=== PATIENT | female | born 1965 | race Native Hawaiian/Other Pacific Islander ===

== ENCOUNTER 2016-12-22 18:06 | Emergency (ER) | payer OTHER ==
[2016-12-22] MEDS ORDERED: ACETAMINOPHEN 325 MG TABLET PO STA (18:47)
[2016-12-22] MEDS ORDERED: IBUPROFEN 600 MG TABLET PO STA (18:47)
[2016-12-22] MEDS ORDERED: DEXAMETHASONE 10 MG/ML VIAL PO STA (18:47)
[2016-12-22] MEDS ORDERED: DEXAMETHASONE 10 MG/ML VIAL ONE (18:50)
[2016-12-22] MEDS ORDERED: IBUPROFEN 600 MG TABLET PO ONE (18:50)
[2016-12-22] MEDS ORDERED: ACETAMINOPHEN 325 MG TABLET PO ONE (18:50)
== END 2016-12-22 19:02 | disposition home or self-care (01) ==
DX: M79.675 Pain in left toe(s) (principal)
CPT/HCPCS: 99283; A9270

== ENCOUNTER 2018-01-12 18:32 | Emergency (ER) | payer OTHER ==
[2018-01-12 19:01] LABS: BASOPHILS % (AUTO) 0.5 %; EOSINOPHILS # (AUTO) 0.1 10^3/uL (0.0-0.7); EOSINOPHILS % (AUTO) 1.1 %; HGB - HEMOGLOBIN 13.7 g/dL (12.0-16.0); LYMPHOCYTES # (AUTO) 3.5 10^3/uL (1.5-3.5); LYMPHOCYTES % (AUTO) 48.7 %; MEAN CORPUSCULAR HGB CONC 30.7 g/dL (32.0-36.0); MEAN CORPUSCULAR VOLUME 65.2 fL (81.0-99.0); MEAN PLATELET VOLUME 8.5 fL (7.9-10.8); MONOCYTES # (AUTO) 0.5 10^3/uL (0.0-1.0); MONOCYTES % (AUTO) 7.6 %; NEUTROPHILS % (AUTO) 42.1 %; PLT - PLATELET COUNT 253 10^3/uL (130-450); RED BLOOD COUNT 6.81 10^6/uL (4.20-5.40); RED CELL DISTRIBUTION WIDTH 16.5 % (12.0-15.0); WHITE BLOOD COUNT 7.1 x10^3/uL (4.8-10.8)
--- NOTE | 2018-01-12 19:10 | ED Physician Documentation ---
PD HPI CHEST PAIN - Stated complaint Stated Complaint: CHEST PX - Chief complaint Chief Complaint: Cardiac - History obtained from History obtained from: Patient, Family - History of Present Illness Timing - onset: Other (She developed substernal chest pressure at 530 tonight while watching TV. It is nonradiating. It is better now but not gone. She also had a yesterday. She is getting over a cough and cold with clear sputum. No fevers. She has no history of heart problems. No pedal edema or shortness of breath. No calf pain. No history of DVT or PE.) Review of Systems Ten Systems: 10 systems reviewed and negative Constitutional: denies: Fever, Chills Cardiac: reports: Chest pain / pressure. denies: Palpitations, Pedal edema, Calf pain Respiratory: reports: Cough. denies: Dyspnea GI: denies: Abdominal Pain, Nausea, Vomiting PD PAST MEDICAL HISTORY - Past Medical History Past Medical History: Yes Cardiovascular: Hypertension Endocrine/Autoimmune: None - Past Surgical History Past Surgical History: No - Present Medications Home Medications: Ambulatory Orders Medication Instructions Recorded Confirmed Telmisartan [Micardis] 12/22/16 - Allergies Allergies/Adverse Reactions: Allergies Allergy/AdvReac Type Severity Reaction Status Date / Time No Known Drug Allergies Allergy Verified 01/12/18 18:40 - Social History Does the pt smoke?: No Smoking Status: Never smoker Does the pt drink ETOH?: Yes Does the pt have substance abuse?: No - Immunizations Immunizations are current?: Yes - POLST Patient has POLST: No PD ED PE NORMAL - Vitals Vital signs reviewed: Yes - General General: Alert and oriented X 3, No acute distress - HEENT HEENT: PERRL, EOMI - Neck Neck: Supple, no meningeal sign, No bony TTP - Cardiac Cardiac: RRR, No murmur - Respiratory Respiratory: No respiratory distress, Clear bilaterally - Abdomen Abdomen: Normal bowel sounds, Soft, Non tender - Back Back: No CVA TTP, No spinal TTP - Derm Derm: Normal color, Warm and dry, No rash - Extremities Extremities: No edema, No calf tenderness / cord - Neuro Neuro: Alert and oriented X 3, Normal speech Results - Vitals Vitals: Vital Signs - 24 hr 01/12/18 01/12/18 01/12/18 18:33 19:36 20:47 Temperature 36.9 C Heart Rate 75 62 60 Respiratory 18 18 18 Rate Blood Pressure 219/103 H 148/87 H 125/81 H O2 Saturation 98 98 97 Oxygen O2 Source Room air - EKG (time done) 1840 Rate: Rate (enter#) (67) Rhythm: NSR [place]: Normal Intervals: Normal PA QRS: Normal Ischemia: Non specific changes Computer interpretation: Agree with computer 1909 Rate: Rate (enter#) (64) Rhythm: NSR [place]: Normal Intervals: Normal PA QRS: Normal Ischemia: Non specific changes Compare to prior EKG: Unchanged from prior EKG (from #1) Computer interpretation: Agree with computer - Labs Labs: Laboratory Tests 01/12/18 01/12/18 01/12/18 18:53 18:53 18:53 WBC 7.1 RBC 6.81 H Hgb 13.7 Hct 44.4 MCV 65.2 L MCH 20.0 L MCHC 30.7 L RDW 16.5 H Plt Count 253 MPV 8.5 Neut # 3.0 Lymph # 3.5 Howard # 0.5 Eos # 0.1 Baso # 0.0 Absolute Nucleated RBC 0.00 Nucleated RBC % 0.0 Manual Slide Review Indicated WBC Morphology NORMAL APPEARANCE Platelet Estimate NORMAL (130-450,000) Platelet Morphology NORMAL APPEARANCE RBC Morph Micro Appear 1+ TARGET CELLS Sodium 136 Potassium 3.5 Chloride 97 L Carbon Dioxide 27 Anion Gap 12.0 BUN 16 Creatinine 0.6 Estimated GFR (MDRD) 105 Glucose 108 H Calcium 10.1 Total Bilirubin 0.6 AST 38 ALT 54 Alkaline Phosphatase 90 Troponin I < 0.04 Total Protein 8.8 H Albumin 4.8 Globulin 4.0 Albumin/Globulin Ratio 1.2 Lipase 29 01/12/18 20:34 WBC RBC Hgb Hct MCV MCH MCHC RDW Plt Count MPV Neut # Lymph # Howard # Eos # Baso # Absolute Nucleated RBC Nucleated RBC % Manual Slide Review WBC Morphology Platelet Estimate Platelet Morphology RBC Morph Micro Appear Sodium Potassium Chloride Carbon Dioxide Anion Gap BUN Creatinine Estimated GFR (MDRD) Glucose Calcium Total Bilirubin AST ALT Alkaline Phosphatase Troponin I < 0.04 Total Protein Albumin Globulin Albumin/Globulin Ratio Lipase - Rads (name of study) 1v chest Radiology: EMP read contemporaneously (normal) PD MEDICAL DECISION MAKING - ED course ED course: She has acute atypical CP. EKG nonischemic and unchanged x2. Delta trop at 2hr neg. CXR neg. BP noted but better w/o intervention. PERC neg, Departure - Departure Disposition: 01 Home, Self Care Clinical Impression: Chest pain Qualifiers: Chest pain type: unspecified Qualified Code(s): R07.9 - Chest pain, unspecified Condition: Good Record reviewed to determine appropriate education?: Yes Instructions: ED Chest Pain NonCardiac Comments: Call your doctor to arrange a follow-up appointment, make the next available appointment. In the interim, return anytime if worse or if new symptoms develop. Discharge Date/Time: 01/12/18 21:05
[2018-01-12 19:13] LABS: ALBUMIN 4.8 g/dL (3.2-5.5); ALBUMIN/GLOBULIN RATIO 1.2 (1.0-2.2); BILIRUBIN,TOTAL 0.6 mg/dL (0.2-1.0); CALCIUM 10.1 mg/dL (8.5-10.3); CREATININE 0.6 mg/dL (0.4-1.0); TOTAL PROTEIN 8.8 g/dL (6.7-8.2)
[2018-01-12 19:16] LABS: PLATELET ESTIMATE, MANUAL NORMAL (130-450,000) (NORMAL); PLATELET MORPHOLOGY NORMAL APPEARANCE (NORMAL)
--- NOTE | 2018-01-12 19:18 | XRAY Preliminary Report ---
Exam: XR CHEST 1 VIEW X-RAY IMPRESSION: Normal single view chest. [facility] SITE ID: [id number]
--- NOTE | 2018-01-12 19:18 | XRAY Report ---
EXAM: CHEST RADIOGRAPHY EXAM DATE: 01/12/2018 07:10 PM. CLINICAL HISTORY: Chest pain. COMPARISON: None. TECHNIQUE: 1 view. FINDINGS: Lungs/Pleura: Clear. No effusion or pneumothorax. Mediastinum: Within exam limitations, the cardiomediastinal contour is normal. Upper lobe vessels not distended. Other: None. IMPRESSION: Normal single view chest. [facility] Referring Provider Line: [phone] SITE ID: [id number]
[2018-01-12 20:47] VITALS: BP 125/81
== END 2018-01-12 21:05 | disposition home or self-care (01) ==
LOC: ED 18:32
DX: R07.9 Chest pain, unspecified (principal); R94.31 Abnormal electrocardiogram [ECG] [EKG]; I10 Essential (primary) hypertension
CPT/HCPCS: 36415; 71045; 80053; 83690; 84484; 85025; 93005; 99283; 99284

== ENCOUNTER 2019-10-02 14:31 | Outpatient (CLI) | payer OTHER ==
--- NOTE | 2019-10-03 09:03 | Ultrasound Report ---
Reason: RIGHT BREAST Procedure Date: 10/02/2019 Accession Number: [id number] / [id number] Procedure: US - Breast Unilateral Limited CPT Code: Final Report FULL RESULT: EXAM: Diagnostic Dig RT, Breast Unilateral Limited DATE: 10/02/2019 3:26 PM CLINICAL HISTORY: The patient is an asymptomatic 54-year-old female presenting for six-month follow-up right breast evaluation (mass - presumed fibroadenoma). No reported personal nor family history of breast cancer. TECHNIQUE: (B) - Bilateral CC and MLO views were obtained. Additional diagnostic images. COMPARISON: [facility] 03/19/2019 FINDINGS: PARENCHYMAL PATTERN: The breast tissue is heterogeneously dense which may limit mammographic sensitivity. The previously described lobulated mass with coarse / dystrophic calcifications in the posterior 8:00 position is stable in size and configuration since the most recent comparison study measuring 11 mm in maximal dimension. No new mass, area of distortion or pleomorphic obscuration. There is no mammographic evidence for malignancy. RIGHT ULTRASOUND FINDINGS: TECHNIQUE: A high frequency transducer was utilized to evaluate the lower outer quadrant (area of mammographic concern). Utility Mechanic Supervisor static images obtained. Doppler performed. There is an avascular lobulated mass in the 8:00 axis 7 cm from the nipple measuring 11 x 4 x 10 mm. This likely represents a fibroadenoma and is stable in size and configuration when compared to the prior study. There are no sonographic features of malignancy. Recommend ongoing imaging surveillance to confirm two-year stability. IMPRESSION: Probably Benign. BI-RADS category 3. RECOMMENDATION: (6MOS) - Recommend 6 month follow-up exam. Recommend repeat diagnostic mammogram and ultrasound in 6 months. Note: The left breast screening mammogram may be performed at same time. BI-RADS CATEGORY: (3) - Probably Benign. STANDARD QUALIFYING STATEMENTS: 1. This examination was not reviewed with the aid of Computer-Aided Detection (CAD). 2. A negative or benign imaging report should not preclude biopsy if clinically suspicious findings are present. 3. Dense breasts may obscure an underlying neoplasm.
== END 2019-10-02 14:32 | disposition home or self-care (01) ==
LOC: DI 14:31
PROVIDERS: ATTEND Family Medicine
DX: R92.8 Other abnormal and inconclusive findings on diagnostic imaging of breast (principal)
CPT/HCPCS: 76642

== ENCOUNTER 2020-05-23 14:53 | Outpatient (CLI) | payer OTHER ==
--- NOTE | 2020-05-26 09:18 | Ultrasound Report ---
LIMITED ULTRASOUND OF RIGHT BREAST AND AXILLA: 05/23/2020 CLINICAL: Patient returns for a 6 month follow up of the right breast. Comparison is made to exams dated: 05/23/2020 mammogram, 03/19/2019 ultrasound, 10/02/2019 mammogram, and 10/02/2019 ultrasound - [facility]. Color flow ultrasound of the right breast 8 o'clock, and axilla regions was performed. Sadler scale im ages of the real-time examination were reviewed. There is a 1.2 cm x 1.5 cm x 0.5 cm oval mass with an angular margin in the right breast at 8 o'clock posterior depth 7 cm from the nipple. This oval mass is hypoechoic. This abnormality is increased in size previously measuring 1.1 cm x 1.0 cm x 0.4cm in March 2019. THis correlates with mammography fi ndings. Color flow imaging demonstrates that there is no vascularity present. No significant abnormalities were seen sonographically in the right axilla. IMPRESSION: SUSPICIOUS OF MALIGNANCY The 1.2 cm x 1.5 cm x 0.5 cm oval mass in the right breast is probably a fibroadenoma; however it's s ignificant growth since March 2019 is at a low suspicion for malignancy. An ultrasound guided biopsy i s recommended. Findings and recommendations for biopsy were discussed with the patient by Dr. Jones during today's v isit. This exam was interpreted at Station ID: [id number]. Electronically Signed By: Frank Hoskins M.D. aty/:05/23/2020 18:26:49 Ultrasound BI-RADS: 4a Low suspicion for malignancy BI-RADS CATEGORY: (4a) - Low Susp None [id number] Immediate follow-up LATERALITY: ()
--- NOTE | 2020-05-26 09:18 | Mammography Report ---
BILATERAL DIGITAL DIAGNOSTIC MAMMOGRAM 3D/2D: 05/23/2020 CLINICAL: Patient returns for short term follow-up of a probably benign mass in the right breast. Comparison is made to exams dated: 10/02/2019 mammogram and 03/02/2019 mammogram - [facility]. The tissue of both breasts is heterogeneously dense. This may lower the sensitivity of m ammography. There are benign appearing calcifications in both breasts that are not significantly changed. There is a 1.3 cm x 1.5 cm irregular equal density mass with grouped coarse calcifications in the rig ht breast at 8 o'clock posterior depth. This is more prominent and increased in size and correlates with prior ultrasound findings. No other significant masses, calcifications, or other findings are seen in either breast. IMPRESSION: INCOMPLETE: NEEDS ADDITIONAL IMAGING EVALUATION The 1.3 cm x 1.5 cm irregular equal density mass in the right breast resembles a fibroadenoma and is indeterminate. An ultrasound is recommended for further evaluation and is scheduled to immediately follow this study . This exam was interpreted at Station ID: [id number]. NOTE: For mammograms, a report in lay terms will be sent to the patient. Approximately 15% of breast malignancies will not be visualized mammographically. In the management of a palpable breast mass, a negative mammogram must not discourage biopsy of a clinically suspicious lesion. Electronically Signed By: Frank Hoskins M.D. aty/:05/23/2020 16:25:21 ACR BI-RADS Category 0: Incomplete 3340F PARENCHYMAL PATTERN: (D) - The breast(s) demonstrate(s) heterogeneously dense fibroglandular evan kothari. BI-RADS CATEGORY: (0) - 0 Ultrasound [id number] Immediate follow-up LATERALITY: (R)
== END 2020-05-23 14:54 | disposition home or self-care (01) ==
LOC: DI 14:53
PROVIDERS: ATTEND Nurse Practitioner Family
DX: N63.13 Unspecified lump in the right breast, lower outer quadrant (principal); R92.8 Other abnormal and inconclusive findings on diagnostic imaging of breast
CPT/HCPCS: 76642; 77066

== ENCOUNTER 2020-10-07 14:12 | Emergency (ER) | payer OTHER ==
[2020-10-07 14:21] VITALS: BP 161/87
--- NOTE | 2020-10-07 14:29 | ED Physician Documentation ---
History of Present Illness - Stated complaint Stated Complaint: LT HAND INJ - Chief complaint Chief Complaint: Trauma Ext - History obtained from History obtained from: Patient - History of Present Illness Timing: Prior to arrival - Additonal information Additional information: 55-year-old female presents to the emergency department for evaluation of bruising to the dorsum of her left hand. She was pulling a rack out of a shelf at work and hit her hand on the locking mechanism of a door. Patient has a minor abrasion but fairly extensive swelling on the hand. She is right-hand dominant. No history of previous left hand injury. Review of Systems Constitutional: denies: Fever, Chills Eyes: reports: Reviewed and negative Ears: reports: Reviewed and negative Nose: reports: Reviewed and negative Throat: reports: Reviewed and negative Cardiac: reports: Reviewed and negative Respiratory: reports: Reviewed and negative GI: reports: Reviewed and negative Skin: reports: Abrasion (s) (dorsum of left hand) Musculoskeletal: reports: Extremity pain (left hand) Neurologic: reports: Reviewed and negative Psychiatric: reports: Reviewed and negative PD PAST MEDICAL HISTORY - Past Medical History Cardiovascular: Hypertension Endocrine/Autoimmune: None - Past Surgical History Past Surgical History: No - Present Medications Home Medications: Ambulatory Orders Medication Instructions Recorded Confirmed Telmisartan [Micardis] 12/22/16 - Allergies Allergies/Adverse Reactions: Allergies Allergy/AdvReac Type Severity Reaction Status Date / Time No Known Drug Allergies Allergy Verified 10/07/20 14:21 - Social History Does the pt smoke?: No Smoking Status: Never smoker Does the pt drink ETOH?: Yes Does the pt have substance abuse?: No - Immunizations Immunizations are current?: Yes - POLST Patient has POLST: No PD ED PE EXPANDED - Extremities Extremities: Left hand (minor abrsion dorsum of left hand. 3x4 cm area of ecchymosis. No deformity. Able to make a full fist with normal motor strength) Results - Vitals Vitals: Vital Signs - 24 hr 10/07/20 14:18 Temperature 36.0 C L Heart Rate 89 Respiratory 20 Rate Blood Pressure 161/87 H O2 Saturation 97 Oxygen O2 Source Room air - Rads (name of study) left hand Radiology: Final report received (Soft tissue swelling over the dorsum of the left hand but no underlying fracture or foreign body is seen) PD MEDICAL DECISION MAKING - ED course Complexity details: reviewed results ED course: 55-year-old female presents the emergency department with fairly significant swelling and ecchymosis on the dorsum of her left hand after she pulled a shelf out at work and inadvertently hit her hand on the locking mechanism. X-ray does not show any underlying fracture. She has a reassuring exam, able to make a full grasp. Given the extensive bruising this is most likely a contusion. We will place a simple Los wrap on the hand recommend continuing to ice it. Follow-up with Workmen's Comp. Appropriate L&I paperwork completed Departure - Departure Disposition: Home, Self Care Clinical Impression: Contusion of hand, left Qualifiers: Encounter type: initial encounter Qualified Code(s): S60.222A - Contusion of left hand, initial encounter Condition: Stable Record reviewed to determine appropriate education?: Yes Instructions: ED Contusion Hand Ch Follow-Up: Mahnaz Pacheco ARNP [Primary Care Provider] - Comments: Padmaja, the x-ray of your left hand does not show anything broken. However you do have a contusion or bruising of this hand. I recommend that you wear the Los wrap when out of bed for the next 3 to 4 days. I would also like you to continue to ice it. The bruising will take about 2 weeks to resolve. However you can use your hand normally then. If at any point you have fevers, redness red streaking or concerns of infection return to the ER for a second look
--- NOTE | 2020-10-07 14:49 | XRAY Report ---
PROCEDURE: Hand 3 View LT INDICATIONS: r/o fx; hit on shelving TECHNIQUE: 3 views of the hand(s) acquired. COMPARISON: None FINDINGS: Bones: No fractures or dislocations. No suspicious bony lesions. Soft tissues: No suspicious soft tissue calcifications. IMPRESSION: Soft tissue swelling over the dorsum of the hand but no underlying fracture or foreign body is seen. Reviewed by: Pantera Pond MD on 10/07/2020 2:48 PM PST Approved by: Pantera Pond MD on 10/07/2020 2:48 PM PST Station ID: [id number]
== END 2020-10-07 15:00 | disposition home or self-care (01) ==
LOC: ED 14:12
DX: S60.222A Contusion of left hand, initial encounter (principal); W22.09XA Striking against other stationary object, initial encounter; Y93.G1 Activity, food preparation and clean up; Y99.0 Civilian activity done for income or pay; I10 Essential (primary) hypertension
CPT/HCPCS: 1040M; 73130

== ENCOUNTER 2022-06-11 07:24 | Day surgery (SDC) | payer OTHER ==
[2022-06-11] MEDS ORDERED: LACTATED RINGERS 1,000 ML IV ONE ×2 (07:46→08:55)
[2022-06-11] MEDS ORDERED: PROPOFOL 500 MG/50 ML 500 MG/50 ML VIAL ONE (07:56)
[2022-06-11] MEDS ORDERED: LIDOCAINE-MPF 2% 5 ML VIAL ONE (07:56)
--- NOTE | 2022-06-11 07:57 | ANESTHESIA ---
Pre-Anesthesia VS, & Labs - Diagnosis Hx of colon polyps - Procedure Colonoscopy Vital Signs: Temp Pulse Resp BP Pulse Ox 36.5 C 64 16 143/69 H 97 06/11/22 07:40 06/11/22 07:40 06/11/22 07:40 06/11/22 07:40 06/11/22 07:40 Height: 4 ft 11 in Weight (kg): 68 kg Body Mass Index: 30.2 BMI Classification: Obese - NPO >8 hours - Is Patient ?: No - Lab Results Lab results reviewed: Yes Home Medications and Allergies Home Medications: Ambulatory Orders amLODIPine [Norvasc] 5 mg PO DAILY 06/10/22 Telmisartan [Micardis] 20 mg PO DAILY 12/22/16 amLODIPine [Norvasc] 5 mg PO DAILY 06/10/22 Allergies/Adverse Reactions: Allergies Allergy/AdvReac Type Severity Reaction Status Date / Time No Known Drug Allergies Allergy Verified 10/07/20 14:21 Anes History & Medical History - Anesthetic History Anesthesia Complications: reports: No previous complications Family history of Anesthesia Complications: Denies Family history of Malignant Hyperthermia: Denies - Medical History Cardiovascular: reports: Hypertension Pulmonary: reports: None Gastrointestinal: reports: None Urinary: reports: None Neuro: reports: None Musculoskeletal: reports: None Endocrine/Autoimmune: reports: None, HyPERthyroidism (monitored by PCP) Blood Disorders: reports: None Skin: reports: None Smoking Status: Never smoker Psychosocial: reports: No issues indicated History of Cancer?: No Exam General: Alert, Oriented x3 Dental: Poor dentition Mouth Openin Fingerbreadth Neck Mobility: Normal Mallampati classification: III Thyromental Distance: 4-6 cm Respiratory: Lungs clear Cardiovascular: Regular rate, Normal S1, Normal S2, No murmurs Mental/Cognitive Status: Alert/Oriented X3, Normal for patient Cognitive Status: Within normal limits Plan Anesthesia Type: General Consent for Procedure(s) Verified and Reviewed: Yes Code Status: Attempt Resuscitation ASA classification: 2-Mild systemic disease Is this case an emergency?: No
--- NOTE | 2022-06-11 08:23 | HISTORY & PHYSICAL EXAMINATION ---
Chief Complaint - Chief Complaint Chief Complaint: here for colonoscopy History of Present Illness - History Obtained From Records Reviewed: yes History obtained from: pt Exam Limitations: none - History of Present Illness HPI Comment/Other: history of colon polyps. here for surveillance. no problems History - Past Medical History Cardiovascular: reports: Hypertension Respiratory: reports: None Neuro: reports: None Endocrine/Autoimmune: reports: None, HyPERthyroidism (monitored by PCP) GI: reports: None : reports: None Musculoskeletal: reports: None Derm: reports: None MRSA Hx?: No - POLST Patient has POLST: No Meds/Allgy - Home Medications Home Medications: Ambulatory Orders Medication Instructions Recorded Confirmed Telmisartan [Micardis] 20 mg PO DAILY 12/22/16 06/10/22 amLODIPine [Norvasc] 5 mg PO DAILY 06/10/22 06/10/22 - Allergies Allergies/Adverse Reactions: Allergies Allergy/AdvReac Type Severity Reaction Status Date / Time No Known Drug Allergies Allergy Verified 10/07/20 14:21 Review of Systems - Other Findings Other Findings: 10 pt ros as above otherwise unremarkable Exam - Vital Signs Vital Signs: Vital Signs x48h Temp Pulse Resp BP Pulse Ox 06/11/22 07:40 36.5 C 64 16 143/69 H 97 - Physical Exam General Appearance: positive: No acute distress, Alert Eyes Bilateral: positive: PERRL, EOMI, No scleral icterus ENT: positive: No signs of dehydration Neck: positive: No JVD Respiratory: positive: No respiratory distress, Breath sounds nml Cardiovascular: positive: Regular rate & rhythm Abdomen: positive: Non-tender, No distention Neurologic/Psychiatric: positive: Oriented x3 Conclusion/Plan - Problem List (1) History of adenomatous polyp of colon Conclusion/Plan: plan colonoscopy. parq held and consent obtained - Lab Results Lab results reviewed: Yes
[2022-06-11] MEDS ORDERED: MIDAZOLAM 2 MG/2 ML VIAL ONE (08:24)
[2022-06-11] MEDS ORDERED: ePHEDrine 50 MG/ML VIAL IVP ONE (08:43)
[2022-06-11 09:08] VITALS: BP 89/50
--- NOTE | 2022-06-11 10:06 | ANESTHESIA POST OP EVALUATION ---
Anesthesia Post Eval - Post Anesthesia Eval Vitals: Last Vital Signs Temp 36.4 C L 06/11/22 09:40 Pulse 72 06/11/22 09:40 Resp 16 06/11/22 09:40 BP 112/70 06/11/22 09:40 Pulse Ox 100 06/11/22 09:40 CV Function Including HR & BP: Stable Pain Control: Satisfactory Nausea & Vomiting: Negative Mental Status: Baseline Respiratory Status: Airway Patent Hydration Status: Satisfactory Anesthesia Complications: None
== END 2022-06-11 07:25 | disposition home or self-care (01) ==
LOC: SDS 07:24
PROVIDERS: ATTEND Surgery
PROC: 0DBH8ZX Excision of Cecum, Via Natural or Artificial Opening Endoscopic, Diagnostic (ICD-10-PCS; principal; 2022-06-11 08:30)
DX: Z12.11 Encounter for screening for malignant neoplasm of colon (principal); D12.0 Benign neoplasm of cecum; R00.1 Bradycardia, unspecified; I95.9 Hypotension, unspecified; I10 Essential (primary) hypertension; E66.9 Obesity, unspecified; Z68.30 Body mass index [BMI] 30.0-30.9, adult
CPT/HCPCS: 45380; J7120

== ENCOUNTER 2024-03-26 09:39 | Outpatient (CLI) | payer OTHER ==
[2024-03-26] MEDS ORDERED: LIDOCAINE-MPF 1% 5 ML VIAL ONE (10:23)
[2024-03-26] MEDS: LIDOCAINE-MPF 1% 5 ML VIAL TD ONE (12:16)
--- NOTE | 2024-03-26 14:55 | Ultrasound Report ---
PROCEDURE: FNA Bx w/US Gdn 1st Les INDICATIONS: THYROID NODULE TECHNIQUE: The indications, alternatives, benefits, risks, and complications of the procedure were explained to the patient. Written informed consent was obtained and placed in the chart. The area of interest wa s examined sonographically and a site was chosen for ultrasound guided percutaneous sampling. The sk in was prepared and draped in the usual fashion, and anesthetized with 1% lidocaine infiltrated from the skin down to the lesion. Multiple passes were then performed, with [facility]. A bandage was applied to the area of access at completion of t he study. COMPARISON: Outside CT 11/12/2023 FINDINGS: Location(s) of lesion(s) sampled: Right thyroid (2.2 x 1.2 x 1.4 cm nodule), with calcifications. It is solid and hypoechoic. [place]: 25 gauge hypodermic needles. Number of passes: 5 Medications: 1% lidocaine for local anaesthesia. Complications: None. IMPRESSION: Successful ultrasound-guided right thyroid nodule fine needle aspiration, with cytology results yvonne meeks. Reviewed by: Bobo Rao MD on 03/26/2024 2:54 PM PDT Approved by: Bobo Rao MD on 03/26/2024 2:54 PM PDT Station ID: [id number]
== END 2024-03-26 09:40 | disposition home or self-care (01) ==
LOC: DI 09:39
PROVIDERS: ATTEND Nurse Practitioner Family
DX: E04.9 Nontoxic goiter, unspecified (principal)
CPT/HCPCS: 10005